=== PATIENT | female | born 1965 | race Asian ===

== ENCOUNTER → 2024-06-02 | Outpatient (CLI) | payer BC, SELFPAY ==
--- NOTE | 2024-06-02 08:30 | XR_ITS ---
Examination: Breast ultrasound complete, bilateral Date and time of exam: June 02, 2024 0911 hours INDICATIONS: BRCA gene positive, right breast pain and discharge years, right breast sonogram November 24, 2022 BI-RADS 4 suspicious mass 7:00 position right breast Technique: Real-time grayscale ultrasonographic imaging bilateral breasts, including all 4 quadrants as well as nipple retroareolar and axillary regions. Findings: Sonographic images right breast 7:00 oval mass lobular margins 23 x 9 x 17 mm 3:00 cyst 5 x 4 mm Sonographic images left breast No cystic or solid mass IMPRESSION: BI-RADS Category 4: Suspicious for malignancy Recommend rebiopsy of the 7:00 nodule right breast to exclude breast carcinoma, this mass is amenable to ultrasound-guided breast biopsy for diagnosis
--- NOTE | 2024-06-02 08:35 | XR_ITS ---
Examination: Diagnostic digital mammography, bilateral Computer aided detection 3-D breast Tomosynthesis, bilateral Date and time of exam: June 02, 2024 0859 hours Compared to mammograms dating to May 25, 2013 INDICATIONS: Right breast discharge 3 years, BRACA gene 1 positive Technique: Nonmagnified MLO, CC views of the breasts to been obtained, reconstructed from 3-D Tomosynthesis images. R2 computer aided detection program utilized for evaluation of suspicious masses and/or abnormal calcifications. 3-D Tomosynthesis images obtained. Findings: The breasts are heterogeneously dense, which may obscure small masses 12 mm focal asymmetry upper outer left breast anterior depth Benign calcifications Impression: BI-RADS Category 0: Incomplete: Need additional imaging evaluation 12 mm focal asymmetry outer left breast anterior depth. Recommend follow-up spot tomographic views of this asymmetry as well as left breast sonography to complete the workup Please see the breast sonogram report today indicating BI-RADS 4 suspicious mass 7:00 position right breast requiring rebiopsy ultrasound-guided
== END | disposition home or self-care (01) ==
LOC: CDIM 08:29
PROVIDERS: Referring Provider Student in an Organized Health Care Education/Training Program; Visit Provider Student in an Organized Health Care Education/Training Program
DX: R92.8 Other abnormal and inconclusive findings on diagnostic imaging of breast (principal); N64.89 Other specified disorders of breast; N63.13 Unspecified lump in the right breast, lower outer quadrant
CPT/HCPCS: 76641; 77062; 77066; G0279

== ENCOUNTER → 2024-08-14 | Outpatient (CLI) | payer BC, SELFPAY ==
--- NOTE | 2024-08-14 09:00 | XR_ITS ---
Examination: Diagnostic digital mammography, unilateral, left Computer aided detection 3-D breast Tomosynthesis, unilateral Date and time of exam: August 14, 2024 0903 hours INDICATIONS: Mammogram June 02, 2024 12 mm focal asymmetry upper outer left breast anterior depth Technique: Nonmagnified MLO, CC views of the left breast have been obtained, reconstructed from 3-D Tomosynthesis images. R2 computer aided detection program utilized for evaluation of suspicious masses and/or abnormal calcifications. 3-D Tomosynthesis images obtained. Findings: The breast is heterogeneously dense, which may obscure small masses No suspicious mass is depicted on the spot compression views Impression: BI-RADS category 2: Benign findings Return to yearly follow-up mammography
--- NOTE | 2024-08-14 09:15 | XR_ITS ---
Examination: Breast ultrasound, unilateral, left complete Date and time of exam: August 14, 2024 at 0851 hours INDICATIONS: Left breast pain nipple discoloration, mammogram June 02, 2024 12 mm focal asymmetry outer left breast anterior depth Technique: Real-time santoyo scale ultrasonographic imaging performed left breast including all 4 quadrants as well as nipple retroareolar and axillary region. Findings: No cystic or solid mass IMPRESSION: BI-RADS Category 1: Negative study
== END | disposition home or self-care (01) ==
LOC: CDIM 08:37
PROVIDERS: PCP Student in an Organized Health Care Education/Training Program; Referring Provider Student in an Organized Health Care Education/Training Program; Visit Provider Student in an Organized Health Care Education/Training Program
DX: R92.323 Mammographic fibroglandular density, bilateral breasts (principal)
CPT/HCPCS: 76641; 77061; 77065; G0279

== ENCOUNTER → 2024-09-23 | Outpatient (CLI) | payer BC, SELFPAY ==
[2024-09-22 08:18] LABS: Basophils % (Auto) 0 % (0-2.5); Eosinophils # (Auto) 0.2 Thou/mm3 (0.0-0.5); Eosinophils % (Auto) 2 % (0-10); Hematocrit 41.4 % (36.0-46.0); Hemoglobin 13.1 g/dL (12.0-16.0); Immature Granulocytes % (Auto) 0 % (0-0); Immature Granulocytes Auto 0.01 Thou/mm3 (0.00-0.00); Lymphocytes % (Auto) 39 % (10-50); Mean Corpuscular HGB Conc 31.6 g/dl (31.0-37.0); Mean Corpuscular Hemoglobin 23.1 pg (25.0-35.0); Mean Corpuscular Volume 73 fL (80-100); Monocytes # (Auto) 0.5 Thou/mm3 (0.0-0.8); Monocytes % (Auto) 7 % (0-12); Neutrophils % (Auto) 52 % (37-80); Nucleated Red Blood Cell % 0 /100 WBC (0); Platelet Count 242 Thou/mm3 (140-440); Red Blood Count 5.68 Miln/mm3 (4.00-5.20); White Blood Count 7.7 Thou/mm3 (3.6-11.0)
[2024-09-22 08:27] LABS: Partial Thromboplastin Time 26.6 Seconds (22.0-36.0); Prothrombin Time 10.7 Seconds (9.0-12.2)
--- NOTE | 2024-09-23 08:30 | XR_ITS ---
Examinations: Ultrasound-guided percutaneous breast biopsy, right breast 7:00 nodule Right breast sonography limited INDICATIONS: Right breast sonography June 12, 2024 BI-RADS 4 suspicious nodule 7:00 position right breast. Exam date and time: September 23, 2024 0916 hours. Informed consent provided. Technique: A timeout was completed verifying correct patient, procedure, site, positioning, and special equipment if applicable Informed consent provided. The patient was placed in a supine position for the breast biopsy. Sonographic images of the breast were performed for localization of the suspicious nodule The patient's breast was prepped and draped in sterile fashion. Maximum sterile barrier technique, hand hygiene, ultrasound sterile technique 1% lidocaine was used to anesthetize the skin and breast adjacent to the suspicious nodule. Utilizing ultrasonographic guidance, 8 core biopsies were obtained of the suspicious nodule utilizing an 18-gauge BioPince needle. The specimens appears satisfactory. US guided breast biopsy marker placement. Estimated blood loss 3 cc. The patient tolerated the procedure well and there were no complications. Impression: Successful ultrasound-guided percutaneous breast biopsy, 7:00 nodule. Ultrasound guided breast biopsy marker placement.
== END | disposition home or self-care (01) ==
LOC: SIRX 08:23
PROVIDERS: Radiology Diagnostic Radiology; PCP Internal Medicine; Referring Provider Internal Medicine; Visit Provider Internal Medicine
DX: D24.1 Benign neoplasm of right breast (principal); N60.31 Fibrosclerosis of right breast; Z01.812 Encounter for preprocedural laboratory examination
CPT/HCPCS: 19083; 36415; 85025; 85610; 85730; A4648